=== PATIENT | female | born 1975 | race Caucasian/White ===

== ENCOUNTER 2021-04-28 20:12 | Emergency (ER) | payer MEDICARE ==
[~2021-04-28] VITALS: Ht 170.2 cm; Wt 91.0 kg
[2021-04-28 21:47] LABS: HEMATOCRIT 44.7 % (37.0-47.0); HEMOGLOBIN 15.1 g/dl (12.0-16.0); IMMATURE GRANULOCYTES 0.3 % (0.0-5.0); MEAN CORPUSCULAR HGB 30.8 pG CALC (26.0-32.0); MEAN CORPUSCULAR HGB CONC 33.8 g/dL CAL (32.0-36.0); NEUT# 4.32 thou/uL (2.00-7.15); RED BLOOD COUNT 4.91 mill/uL (4.20-5.60); RED CELL DISTRI WIDTH 12.2 % (11.5-15.5)
[2021-04-28 21:49] LABS: URINE BILIRUBIN - DIPSTICK NEGATIVE (NEGATIVE); URINE BLOOD DIPSTICK TRACE-INTACT (NEGATIVE); URINE COLOR YELLOW; URINE GLUCOSE - DIPSTICK NEGATIVE (NEGATIVE); URINE KETONE 15 mg/dL (NEGATIVE); URINE LEUK ESTERASE NEGATIVE (NEGATIVE); URINE PROTEIN - DIPSTICK NEGATIVE (NEG-TRACE); URINE SPECIFIC GRAVITY >=1.030; URINE UROBILINOGEN - DIPSTICK 0.2 E.U./dL (0.2)
[2021-04-28 21:53] LABS: URINE NITRITE - DIPSTICK NEGATIVE (Negative)
[2021-04-28 22:06] LABS: ALBUMIN 4.7 g/dL (3.2-5.0); ALKALINE PHOSPHATASE 125 u/l (38-126); ANION GAP 12 (6-22 (CALC)); BILIRUBIN, TOTAL 0.4 mg/dL (0.0-1.4); BUN 12 mg/dL (7-17); BUN/CREATININE RATIO 12 (12-20 (CALC)); CARBON DIOXIDE 28 mmol/l (22-30); CHLORIDE 105 mmol/l (95-108); GFR 60 ML/MIN (>=60 (CALC)); GFR FOR AFR.AMER. > 60 ML/MIN (>=60 (CALC)); MAGNESIUM 2.1 mg/dL (1.6-2.3); POTASSIUM 3.8 mmol/l (3.5-5.1); SGOT/AST 33 u/l (14-36); SODIUM 141 mmol/l (137-146)
[2021-04-28] MEDS ORDERED: PAROXETINE20 MG PO (22:15)
[2021-04-28] MEDS ORDERED: DITROPAN XL10 MG PO (22:15)
[2021-04-28] MEDS ORDERED: VISTARIL25 MG PO (22:15)
[2021-04-28 22:32] VITALS: BP 146/72
== END 2021-04-28 22:45 | disposition home or self-care (01) ==
LOC: ED 20:12
PROVIDERS: Family Medicine
DX: F41.9 Anxiety disorder, unspecified (principal); N32.81 Overactive bladder; E78.5 Hyperlipidemia, unspecified; T43.506A Underdosing of unspecified antipsychotics and neuroleptics, initial encounter; Z91.128 Patient's intentional underdosing of medication regimen for other reason

== ENCOUNTER 2021-12-09 08:13 | Emergency (ER) | payer MEDICARE ==
[~2021-12-09] VITALS: Ht 170.2 cm; Wt 90.9 kg
[~2021-12-09 08:13] MED LIST: DITROPAN XL10 MG PO; PAROXETINE20 MG PO; VISTARIL25 MG PO
[2021-12-09 08:21] VITALS: BP 120/78
[2021-12-09 08:46] VITALS: BP 120/78
== END 2021-12-09 08:53 | disposition home or self-care (01) ==
LOC: ED 08:13
PROC: 0HQ0XZZ Repair Scalp Skin, External Approach (ICD-10-PCS; principal; 2021-12-09)
DX: S01.01XA Laceration without foreign body of scalp, initial encounter (principal); F41.9 Anxiety disorder, unspecified; E78.5 Hyperlipidemia, unspecified; W22.09XA Striking against other stationary object, initial encounter; Y93.E1 Activity, personal bathing and showering; Y92.002 Bathroom of unspecified non-institutional (private) residence as the place of occurrence of the external cause

== ENCOUNTER 2021-12-15 21:39 | Emergency (ER) | payer MEDICARE ==
[~2021-12-15] VITALS: Ht 170.2 cm; Wt 98.0 kg
[2021-12-15 23:00] VITALS: BP 129/90
== END 2021-12-15 23:00 | disposition home or self-care (01) ==
LOC: ED 21:39
DX: S01.91XD Laceration without foreign body of unspecified part of head, subsequent encounter (principal); X58.XXXD Exposure to other specified factors, subsequent encounter; F41.9 Anxiety disorder, unspecified; E78.5 Hyperlipidemia, unspecified

== ENCOUNTER 2023-12-23 08:50 | Emergency (ER) | payer MEDICARE ==
[2023-12-23] VITALS (16 sets, daily range): BP systolic 120–151; BP diastolic 58–88
[~2023-12-23] VITALS: Ht 170.2 cm; Wt 90.7 kg
[2023-12-23] MEDS ORDERED: KETOROLAC TROMETHAMINE 30 MG/ML SDV IV ONE (09:15)
[2023-12-23 09:43] LABS: BASO% 0.5 % (0-3); EOS% 0.8 % (0-8); HEMATOCRIT 42.8 % (37.0-47.0); HEMOGLOBIN 14.3 g/dl (12.0-16.0); IMMATURE GRANULOCYTES 0.3 % (0.0-5.0); LYMPH% 24.8 % (15-41); MEAN CELL VOLUME 91.8 fL CALC (80.0-100.0); MEAN CORPUSCULAR HGB 30.7 pG CALC (26.0-32.0); MEAN CORPUSCULAR HGB CONC 33.4 g/dL CAL (32.0-36.0); MONO% 8.5 % (2-13); NEUT# 6.23 thou/uL (2.00-7.15); NEUT% 65.1 % (42-76); RED BLOOD COUNT 4.66 mill/uL (4.20-5.60); RED CELL DISTRI WIDTH 12.5 % (11.5-15.5)
[2023-12-23 09:52] LABS: ALBUMIN 4.5 g/dL (3.2-5.0); CREATININE 0.7 mg/dL (0.5-1.0); TOTAL PROTEIN 7.5 g/dL (6.3-8.2)
[2023-12-23 09:54] LABS: BILIRUBIN, TOTAL 0.7 mg/dL (0.02-1.3)
[2023-12-23 10:23] LABS: TSH, 3RD GENERATION 1.71 uIU/mL (0.47 - 4.68)
[2023-12-23] MEDS ORDERED: PAROXETINE HCL20 MG PO (10:58)
[2023-12-23] MEDS ORDERED: LEVOTHYROXIN25 MC1 PO (10:58)
[2023-12-23] MEDS ORDERED: FENOFIBRATE160 MG PO (11:00)
[2023-12-23] MEDS ORDERED: OXYBUTYNIN CHLOR5 M2 (11:01)
[2023-12-23] MEDS ORDERED: HYDROXYZ HCL25 MG PO (11:01)
== END 2023-12-23 12:57 | disposition home or self-care (01) ==
LOC: ED 08:50
PROVIDERS: Emergency Medicine
DX: F41.9 Anxiety disorder, unspecified (principal); E78.5 Hyperlipidemia, unspecified; Z86.718 Personal history of other venous thrombosis and embolism

== ENCOUNTER 2024-02-05 14:54 | Emergency (ER) | payer MEDICARE, MEDICAID ==
[~2024-02-05] VITALS: Ht 170.2 cm; Wt 90.7 kg
[~2024-02-05 14:54] MED LIST changes: +FENOFIBRATE160 MG PO; +HYDROXYZ HCL25 MG PO; +LEVOTHYROXIN25 MC1 PO; +OXYBUTYNIN CHLOR5 M2; +PAROXETINE HCL20 MG PO
[2024-02-05 15:02] VITALS: BP 113/53
[2024-02-05 15:15] VITALS: BP 119/64
[2024-02-05] MEDS ORDERED: CEPHALEXIN500 M1 PO (15:25)
[2024-02-05 15:31] VITALS: BP 127/52
[2024-02-05 15:37] VITALS: BP 127/52
== END 2024-02-05 16:04 | disposition home or self-care (01) ==
LOC: ED 14:54
DX: L03.113 Cellulitis of right upper limb (principal); R44.0 Auditory hallucinations; R44.1 Visual hallucinations; F41.9 Anxiety disorder, unspecified; E78.5 Hyperlipidemia, unspecified; Z86.718 Personal history of other venous thrombosis and embolism